=== PATIENT | female | born 1995 | race Caucasian/White ===

== ENCOUNTER → 2022-11-22 | Outpatient (REF) | payer BC | LOC: M LAB REF 16:12 | PROVIDERS: ATTEND Nurse Practitioner Family | DX: R30.0 Dysuria (principal) ==

== ENCOUNTER 2024-09-24 15:12 | Emergency (ER) | payer BC ==
[~2024-09-24] VITALS: Ht 175.3 cm; Wt 69.1 kg
[2024-09-24] MEDS ORDERED: CITA40TA7 (15:43)
[2024-09-24] MEDS ORDERED: AMPH1CAP16 (15:43)
[2024-09-24] MEDS: LIDOCAINE 1% MDV 20ML VIAL SC ONE (18:55)
[2024-09-24] MEDS: BOOSTRIX VACCINE (TETANUS/DIPHTH/ACEL. PERTUSSIS) 0.5ML SYR IM.IMMUN ONE (19:56)
[2024-09-24 20:17] VITALS: BP 115/74; TEMP 98.3; O2SAT 100
== END 2024-09-24 19:55 | disposition home or self-care (01) ==
LOC: M ED 15:12
DX: S61.012A Laceration without foreign body of left thumb without damage to nail, initial encounter (principal); S61.213A Laceration without foreign body of left middle finger without damage to nail, initial encounter; W25.XXXA Contact with sharp glass, initial encounter; F90.9 Attention-deficit hyperactivity disorder, unspecified type; Y92.000 Kitchen of unspecified non-institutional (private) residence as the place of occurrence of the external cause; Y93.G1 Activity, food preparation and clean up; Y99.9 Unspecified external cause status; Z79.2 Long term (current) use of antibiotics; Z79.899 Other long term (current) drug therapy; Z23 Encounter for immunization

== ENCOUNTER → 2025-04-15 | Outpatient (REF) | payer OTHER ==
[~2025-04-15] MED LIST: AMPH1CAP16; CITA40TA7
[2025-04-22 16:27] LABS: HPV APTIMA Not Detected (Not Detected)
== END ==
LOC: MERGE 10:39 → M SFHCPLAZ 10:39
PROVIDERS: ATTEND Physician Assistant
DX: Z12.4 Encounter for screening for malignant neoplasm of cervix (principal); R87.610 Atypical squamous cells of undetermined significance on cytologic smear of cervix (ASC-US)
CPT/HCPCS: 87624; G0123